=== PATIENT | female | born 1975 | race Caucasian/White ===

== ENCOUNTER 2020-05-14 21:05 | Emergency (ER) | payer OTHER, SELFPAY ==
[~2020-05-14] VITALS: Ht 162.6 cm; Wt 98.4 kg
[2020-05-14 22:09] VITALS: Ht 162.6 cm; Wt 98.4 kg
[2020-05-15 01:48] VITALS: BP 132/86
== END 2020-05-15 01:48 | disposition home or self-care (01) ==
LOC: ED 21:05
DX: U07.1 COVID-19 (principal); J20.8 Acute bronchitis due to other specified organisms; I10 Essential (primary) hypertension; E11.9 Type 2 diabetes mellitus without complications; E78.00 Pure hypercholesterolemia, unspecified
CPT/HCPCS: Q0092; U0003-CS